=== PATIENT | male | born 2000 | race Caucasian/White ===

== ENCOUNTER 2020-01-23 16:03 | Emergency (ER) | payer OTHER ==
--- NOTE | 2020-01-23 17:37 | EDPHYS ---
Physician Documentation [facility] Name: Grzegorz Ralph Age: 19 yrs Sex: Male : 2000 Arrival Date: 01/23/2020 Time: 16:24 Bed 13 Private MD: ED Physician Mauro Vazquez HPI: 01/22 16:34 This 19 yrs old Male presents to ER via Wheelchair with complaints of shonna possible fever and acting unusual. 16:34 thought to have fever, no temp here. Onset: The symptoms/episode began/occurred just shonna prior to arrival. Severity of symptoms: At their worst the symptoms were mild in the emergency department the symptoms have improved moderately. The patient has not experienced similar symptoms in the past. Historical: - Allergies: 16:31 No Known Allergies; ll1 - PMHx: 16:31 autistic; ll1 - PSHx: 16:31 None; ll1 - Immunization history:: Adult Immunizations up to date. - Social history:: Smoking status: Patient denies any tobacco usage or history of. Patient/guardian denies using alcohol, street drugs, tobacco products. - Family history:: not pertinent. ROS: 16:34 Constitutional: Negative for fever, chills, and weight loss, Eyes: Negative for injury, shonna pain, redness, and discharge, ENT: Negative for injury, pain, and discharge, Neck: Negative for injury, pain, and swelling, Cardiovascular: Negative for chest pain, palpitations, and edema, Respiratory: Negative for shortness of breath, cough, wheezing, and pleuritic chest pain, Abdomen/GI: Negative for abdominal pain, nausea, vomiting, diarrhea, and constipation, Back: Negative for injury and pain, : Negative for injury, bleeding, discharge, and swelling, MS/Extremity: Negative for injury and deformity, Skin: Negative for injury, rash, and discoloration, Neuro: Negative for headache, weakness, numbness, tingling, and seizure, Psych: Negative for depression, anxiety, suicide ideation, homicidal ideation, and hallucinations, Allergy/Immunology: Negative for hives, rash, and allergies, Endocrine: Negative for neck swelling, polydipsia, polyuria, polyphagia, and marked weight changes. Exam: 16:34 Constitutional: This is a well developed, well nourished patient who is awake, alert, shonna and in no acute distress. Head/Face: Normocephalic, atraumatic. Eyes: Pupils equal round and reactive to light, extra-ocular motions intact. Lids and lashes normal. Conjunctiva and sclera are non-icteric and not injected. Cornea within normal limits. Periorbital areas with no swelling, redness, or edema. Neck: Trachea midline, no thyromegaly or masses palpated, and no cervical lymphadenopathy. Supple, full range of motion without nuchal rigidity, or vertebral point tenderness. No Meningismus. Chest/axilla: Normal chest wall appearance and motion. Nontender with no deformity. No lesions are appreciated. Cardiovascular: Regular rate and rhythm with a normal S1 and S2. No gallops, murmurs, or rubs. Normal PMI, no JVD. No pulse deficits. Respiratory: Lungs have equal breath sounds bilaterally, clear to auscultation and percussion. No rales, rhonchi or wheezes noted. No increased work of breathing, no retractions or nasal flaring. Abdomen/GI: Soft, non-tender, with normal bowel sounds. No distension or tympany. No guarding or rebound. No evidence of tenderness throughout. Back: No spinal tenderness. No costovertebral tenderness. Full range of motion. Male : Normal genitalia with no discharge or lesions. Skin: Warm, dry with normal turgor. Normal color with no rashes, no lesions, and no evidence of cellulitis. MS/ Extremity: Pulses equal, no cyanosis. Neurovascular intact. Full, normal range of motion. Neuro: Awake and alert, GCS 15, oriented to person, place, time, and situation. Cranial nerves II-XII grossly intact. Motor strength 5/5 in all extremities. Sensory grossly intact. Cerebellar exam normal. Normal gait. Psych: Awake, alert, with orientation to person, place and time. Behavior, mood, and affect are within normal limits. 16:34 ENT: Nose: is normal, Mouth: Lips: moist, Oral mucosa: moist, Gums: normal with healthy appearance, Tongue: is normal, abscess, is not appreciated, drooling, is not appreciated, Posterior pharynx: Tonsils: with erythema, Uvula: normal, swelling, that is mild. 16:34 Neck: ROM/movement: is normal, no acute changes, Meningeal signs: are not present, Kernig's sign is negative, Brudzinski's sign is negative. 17:01 Constitutional: The patient appears in no acute distress, comfortable, non-diaphoretic, shonna non-toxic, well hydrated. 17:01 Abdomen/GI: Inspection: abdomen appears normal, Bowel sounds: normal, Palpation: abdomen is soft and non-tender, Liver: no appreciated palpable abnormalities, Hernia: not appreciated. Vital Signs: 16:28 BP 143 / 79; Pulse 110; Resp 19; Temp 98.2; Pulse Ox 100% ; Pain 0/10; ll1 17:28 BP 112 / 85; Pulse 135; Resp 18; Temp 98.3; Pulse Ox 96% ; ah MDM: 16:28 Patient medically screened. [facility] 16:38 Data reviewed: vital signs, nurses notes, lab test result(s), radiologic studies. [facility] 16:39 Data interpreted: school lunch monitor: not applicable for this patient encounter. Pulse shonna oximetry: on room air is 100 %. Test interpretation: by ED physician or midlevel provider: plain radiologic studies. Counseling: I had a detailed discussion with the patient and/or guardian regarding: the historical points, exam findings, and any diagnostic results supporting the discharge/admit diagnosis, lab results. 17:34 Differential Diagnosis infectious process. ED course: pt at his basline, no fever , no shonna nausea, no vomiting, no abd pain, no uri symptoms... mom states at baseline. acting no different. 01/22 16:34 Order name: Strep; Complete Time: 17:30 [facility] 01/22 17:19 Order name: Throat Culture EDAL 01/22 16:34 Order name: Chest Single View XRAY [facility] 01/22 16:34 Order name: PO challenge; Complete Time: 17:42 [facility] 01/22 17:13 Order name: Vital Signs; Complete Time: 17:27 [facility] Administered Medications: No medications were administered Disposition: 01/23/20 17:37 Discharged to Home. Impression: Tachycardia, unspecified, Autistic disorder. - Condition is Stable. - Discharge Instructions: Sinus Tachycardia. - Medication Reconciliation Form, Thank You Letter, Antibiotic Education, Prescription Opioid Use form. - Follow up: Private Physician; When: 1 - 2 days; Reason: Recheck today's complaints, Continuance of care, Re-evaluation by your physician. - Problem is new. - Symptoms have improved. Signatures: Dispatcher [employer] Mauro Maza MD MD cha Harris, Amy, RN RN Yanique Hassan RN RN ll1 Corrections: (The following items were deleted from the chart) 17:49 17:37 01/23/2020 17:37 Discharged to Home. Impression: Tachycardia, unspecified; ah Autistic disorder. Condition is Stable. Forms are Medication Reconciliation Form, Thank You Letter, Antibiotic Education, Prescription Opioid Use. Follow up: Private Physician; When: 1 - 2 days; Reason: Recheck today's complaints, Continuance of care, Re-evaluation by your physician. Problem is new. Symptoms have improved. shonna
--- NOTE | 2020-01-23 17:37 | ER ---
Nurse's Notes [facility] Name: Grzegorz Ralph Age: 19 yrs Sex: Male : 2000 Arrival Date: 01/23/2020 Time: 16:24 Bed 13 Private MD: Diagnosis: Tachycardia, unspecified;Autistic disorder Presentation: 01/22 16:28 Chief complaint: Parent and/or Guardian states: Combative and aggressive to family the ll1 past two days. Hasn't taken medication in two days. Fearful to come into ER. Coronavirus screen: Proceed with normal triage. Patient denies a cough. Patient denies shortness of breath or difficulty breathing. Patient denies measured and/or subjective temperature greater than 100.4F prior to today's visit. Patient denies travel on a cruise ship or to a country the [facility] [place] currently [place] as an affected area. Patient denies contact with known and/or suspected case of COVID-19. Ebola Screen: Patient denies travel to an Ebola-affected area in the 21 days before illness onset. Initial Sepsis Screen: Does the patient meet any 2 criteria? HR > 90 bpm. No. Patient's initial sepsis screen is negative. Does the patient have a suspected source of infection? No. Patient's initial sepsis screen is negative. Risk Assessment: Do you want to hurt yourself or someone else? Unable to obtain. Onset of symptoms was January 21, 2020. 16:28 Method Of Arrival: Wheelchair ll1 16:28 Acuity: TRAM 2 ll1 Historical: - Allergies: 16:31 No Known Allergies; ll1 - PMHx: 16:31 autistic; ll1 - PSHx: 16:31 None; ll1 - Immunization history:: Adult Immunizations up to date. - Social history:: Smoking status: Patient denies any tobacco usage or history of. Patient/guardian denies using alcohol, street drugs, tobacco products. - Family history:: not pertinent. Screenin:28 Abuse screen: Denies threats or abuse. Nutritional screening: No deficits noted. Tuberculosis screening: No symptoms or risk factors identified. Fall Risk None identified. Assessment: 17:32 General: Appears in no apparent distress. Behavior is uncooperative. Pain: Denies pain. Neuro: Level of Consciousness is awake, alert, obeys commands. Cardiovascular: Capillary refill < 3 seconds Patient's skin is warm and dry. Rhythm is. Respiratory: Breath sounds are clear bilaterally. GI:. Vital Signs: 16:28 BP 143 / 79; Pulse 110; Resp 19; Temp 98.2; Pulse Ox 100% ; Pain 0/10; ll1 17:28 BP 112 / 85; Pulse 135; Resp 18; Temp 98.3; Pulse Ox 96% ; ED Course: 16:24 Patient arrived in ED. 16:28 Mauro Vazquez MD is Attending Physician. [facility] 16:30 Triage completed. ll1 16:31 Arm band placed on at bedside. Refuses to wear.. Patient placed in an exam room, on a ll1 stretcher, with family at bedside. 16:32 Bed in low position. Call light in reach. Adult w/ patient. 1 17:05 Strep swab sent to lab. jp3 17:06 Chest Single View XRAY In Process Unspecified. EDKS 17:15 Strep Sent. [facility] 17:19 Leanna Norton, RN is Primary Nurse. 17:43 No provider procedures requiring assistance completed. Patient did not have IV access during this emergency room visit. Administered Medications: No medications were administered Outcome: 17:37 Discharge ordered by . [facility] 17:42 Discharged to home ambulatory. 17:42 Condition: stable 17:42 Discharge instructions given to patient, Instructed on discharge instructions, follow up and referral plans. Demonstrated understanding of instructions, follow-up care. 17:49 Patient left the ED. Signatures: Dispatcher [employer] EDKS Mauro Vazquez MD MD cha Baxter, Heather, RN RN Diego Segura 3 Leanna Norton RN RN ah Lewis, Lynsay, RN RN 1 Corrections: (The following items were deleted from the chart) 17:30 17:28 BP 112 / 85; Pulse 135bpm; Resp 18bpm; Pulse Ox 96%; [facility]
[2020-01-23 17:55] VITALS: BP 112/85; TEMP 98.3; O2SAT 96
--- NOTE | 2020-01-23 17:55 | RAD REPORT ---
EXAM DESCRIPTION: RAD - Chest Single View - 01/23/2020 5:06 pm CLINICAL HISTORY: FEVER Chest pain. COMPARISON: Chest Pa And Lat (2 Views) dated 11/06/2016 FINDINGS: Portable technique limits examination quality. The lungs are grossly clear. The heart is normal in size. No displaced fractures. IMPRESSION: No acute intrathoracic process suspected.
== END 2020-01-23 17:49 | disposition home or self-care (01) ==
LOC: ER 16:03
DX: R00.0 Tachycardia, unspecified (principal); F84.0 Autistic disorder
CPT/HCPCS: 71045; 87070; 87081; 99283